=== PATIENT | female | born 1995 | race Caucasian/White ===

== ENCOUNTER 2016-12-05 08:54 | Emergency (ER) | payer BC, OTHER ==
[~2016-12-05] VITALS: Ht 147.3 cm; Wt 6.0 kg
[2016-12-05 08:59] VITALS: Ht 147.3 cm; Wt 6.0 kg
[2016-12-05 10:30] VITALS: TEMP 36.4; O2SAT 98
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
[2016-12-05] MEDS ORDERED: ONDA4TAB10 SL (11:39)
[2016-12-05] MEDS ORDERED: RALT400T PO (11:39)
[2016-12-05] MEDS ORDERED: TRVHP PO (11:39)
[2016-12-05] MEDS ORDERED: RALTEGRAVIR POTASSIUM TAB 400 MG TAB PO SCH (12:00)
[2016-12-05] MEDS ORDERED: AZITHROMYCIN 250 MG TAB PO SCH (12:00)
[2016-12-05] MEDS ORDERED: CEFTRIAXONE SOD INJ 250 MG in SYRINGE 0 ML IM SCH (12:00)
[2016-12-05] MEDS ORDERED: ONDANSETRON 8MG OD TAB PO SCH (12:00)
[2016-12-05] MEDS ORDERED: HIV POST EXPOSURE PROPHYLAXIS KIT SCH (12:00)
[2016-12-05] MEDS ORDERED: NURSING VERBAL MED ORDER ONE (12:00)
[2016-12-05] MEDS ORDERED: LEVONORGESTREL (EMERGENCY OC) 1.5 MG TAB PO SCH (12:00)
[2016-12-05] MEDS ORDERED: EMTRICITABINE/TENOFOVIR TAB PO SCH (12:00)
--- NOTE | 2016-12-05 12:25 | DIAGNOSTIC IMAGING REPORT ---
RIGHT SHOULDER MIN 2 VIEWS ROUTINE CLINICAL HISTORY: Right shoulder pain COMPARISON: None. DISCUSSION: No fractures or dislocations are visualized. There are no erosive or destructive changes. There are no visible periarticular calcifications. IMPRESSION: Normal conventional radiographic evaluation of the right shoulder Electronically signed by: Maycol Campbell M.D. 12/05/2016 12:24 PM Dictated Date/Time: 12/05/2016 12:23 PM
[2016-12-05 12:55] VITALS: BP 122/64; PULSE 89; O2SAT 98
[2017-03-01] MEDS ORDERED: DPKEC500 PO (10:19)
== END 2016-12-05 12:56 | disposition home or self-care (01) ==
LOC: C.EDB 08:58 → C.EDC 12:56
DX: T74.21XA Adult sexual abuse, confirmed, initial encounter (principal); S49.91XA Unspecified injury of right shoulder and upper arm, initial encounter; X58.XXXA Exposure to other specified factors, initial encounter; Y92.89 Other specified places as the place of occurrence of the external cause; J45.909 Unspecified asthma, uncomplicated; F31.9 Bipolar disorder, unspecified; F60.3 Borderline personality disorder; F17.210 Nicotine dependence, cigarettes, uncomplicated

== ENCOUNTER 2017-02-23 03:55 | Inpatient (IN) | payer BC, OTHER ==
[~2017-02-23] VITALS: Ht 147.3 cm; Wt 50.9 kg
[~2017-02-23 03:55] MED LIST: ONDA4TAB10 SL; RALT400T PO; TRVHP PO
[2017-02-23] MEDS ORDERED: SODIUM CHLORIDE 0.9% 1000ML 1,000 ML IV STA (04:01)
--- NOTE | 2017-02-23 04:10 | EMERGENCY ROOM VISIT NOTE ---
History Report prepared by Minhibanastacia: Tamia Ocampo Under the Supervision of: Darien OharaO. First contact with patient: 03:56 Stated Complaint: DRUG OVERDOSE / TYLENOL, BENADRYL History of Present Illness The patient is a 18 year old female who presents to the Emergency Room via EMS with complaints of intentional overdose occurring about 2 hours ago. The patient admits to taking about 18-19 from a 24 pill bottle of 500 mg Tylenol. She also took an unknown amount of [id number] sleeping aide. She is unsure if the sleeping aide contained any Benadryl. She wrote a suicide note prior to taking the medication. She admits to depression and suicidal ideation. She has a history of suicide attempt but does not remember when she last attempted suicide. She had been evaluated by her psychiatrist last week and had informed the psychiatrist that she was going to attempt suicide with a plan to overdose. She denies any alcohol or recreational drug use tonight. The patient currently denies any pain but she complains of tiredness. She denies dizziness, lightheadedness, nausea, vomiting, or any other complaints. Source of History: patient, EMS Onset: about 2 hours ago Position: other (global) Symptom Intensity: No pain Quality: other (intentional overdose) Associated Symptoms: No nausea, No vomiting Review of Systems See HPI for pertinent positives and negatives. A total of ten systems were reviewed and were otherwise negative. Past Medical & Surgical Medical Problems: (1) Asthma (2) Bipolar disorder (3) Borderline personality disorder (4) Cervical pain (neck) (5) Epigastric abdominal pain (6) Frontal lobe contusion (7) Head injury (8) Head injury (9) Mood disorder (10) Mood disorder (11) Suicidal ideation (12) Suicidal ideation (13) Suicidal ideation (14) Syncope (15) Syncope and collapse Family History No significant family history Social History Drug Use: marijuana Marital Status: single Occupation Status: student Current/Historical Medications No Active Prescriptions or Reported Meds Allergies Coded Allergies: No Known Allergies (Unverified , 02/23/17) Physical Exam Vital Signs Date Time Temp Pulse Resp B/P Pulse Ox O2 Delivery O2 Flow Rate FiO2 02/23/17 06:02 81 95/55 100 Room Air 02/23/17 04:14 99 Room Air 02/23/17 04:10 Room Air 02/23/17 04:07 90 02/23/17 04:03 36.5 81 18 115/53 98 Room Air Physical Exam GENERAL: Awake, alert, well-appearing, in no distress HENT: Normocephalic, atraumatic. Oropharynx unremarkable. EYES: Normal conjunctiva. Sclera non-icteric. NECK: Supple. No nuchal rigidity. FROM. No JVD. RESPIRATORY: Clear to auscultation. CARDIAC: Regular rate, normal rhythm. Extremities warm and well perfused. Pulses equal. ABDOMEN: Soft, non-distended. No tenderness to palpation. No rebound or guarding. No masses. RECTAL: Deferred. MUSCULOSKELETAL: Chest examination reveals no tenderness. The back is symmetrical on inspection without obvious abnormality. There is no CVA tenderness to palpation. No joint edema. LOWER EXTREMITIES: Calves are equal size bilaterally and non-tender. No edema. No discoloration. NEURO: Normal sensorium. No sensory or motor deficits noted. PSYCHIATRIC: Depressed affect. SKIN: No rash or jaundice noted. Medical Decision & Procedures Laboratory Results 02/23/17 04:20 Red Blood Count 4.83, Mean Corpuscular Volume 90.7, Mean Corpuscular Hemoglobin 31.1, Mean Corpuscular Hemoglobin Concent 34.2, Mean Platelet Volume 11.3, Neutrophils (%) (Auto) 50.9, Lymphocytes (%) (Auto) 38.8, Monocytes (%) (Auto) 7.2, Eosinophils (%) (Auto) 2.4, Basophils (%) (Auto) 0.6, Neutrophils # (Auto) 4.02, Lymphocytes # (Auto) 3.07, Monocytes # (Auto) 0.57, Eosinophils # (Auto) 0.19, Basophils # (Auto) 0.05 02/23/17 04:20 Test 02/23/17 04:11 02/23/17 04:20 02/23/17 04:25 02/23/17 06:15 Bedside Glucose 85 mg/dl (70-90) White Blood Count 7.91 K/uL (4.8-10.8) Red Blood Count 4.83 M/uL (4.2-5.4) Hemoglobin 15.0 g/dL (12.0-16.0) Hematocrit 43.8 % (37-47) Mean Corpuscular Volume 90.7 fL (80-100) Mean Corpuscular Hemoglobin 31.1 pg (25-34) Mean Corpuscular Hemoglobin Concent 34.2 g/dl (32-36) Platelet Count 258 K/uL (130-400) Mean Platelet Volume 11.3 fL (7.4-10.4) Neutrophils (%) (Auto) 50.9 % Lymphocytes (%) (Auto) 38.8 % Monocytes (%) (Auto) 7.2 % Eosinophils (%) (Auto) 2.4 % Basophils (%) (Auto) 0.6 % Neutrophils # (Auto) 4.02 K/uL (1.4-6.5) Lymphocytes # (Auto) 3.07 K/uL (1.2-3.4) Monocytes # (Auto) 0.57 K/uL (0.11-0.59) Eosinophils # (Auto) 0.19 K/uL (0-0.5) Basophils # (Auto) 0.05 K/uL (0-0.2) RDW Standard Deviation 40.7 fL (36.4-46.3) RDW Coefficient of Variation 12.1 % (11.5-14.5) Immature Granulocyte % (Auto) 0.1 % Immature Granulocyte # (Auto) 0.01 K/uL (0.00-0.02) Prothrombin Time 10.7 SECONDS (9.0-12.0) Prothromb Time International Ratio 1.0 (0.9-1.1) Activated Partial Thromboplast Time 26.5 SECONDS (21.0-31.0) Partial Thromboplastin Ratio 1.0 Anion Gap 7.0 mmol/L (3-11) Estimated GFR () 93.1 Estimated GFR (Non- 80.3 BUN/Creatinine Ratio 11.3 (10-20) Calcium Level 9.5 mg/dl (8.5-10.1) Total Bilirubin 0.4 mg/dl (0.2-1) Direct Bilirubin 0.1 mg/dl (0-0.2) Aspartate Amino Transf (AST/SGOT) 13 U/L (15-37) Alanine Aminotransferase (ALT/SGPT) 26 U/L (12-78) Alkaline Phosphatase 53 U/L (45-117) Total Creatine Kinase 144 U/L (26-192) Total Protein 7.6 gm/dl (6.4-8.2) Albumin 4.5 gm/dl (3.4-5.0) Lipase 123 U/L (73-393) Salicylates Level < 1.7 mg/dl (2.8-20) Ethyl Alcohol mg/dL < 3.0 mg/dl (0-3) Urine Color YELLOW Urine Appearance CLEAR (CLEAR) Urine pH 7.0 (4.5-7.5) Urine Specific [place] 1.012 (1.000-1.030) Urine Protein NEG (NEG) Urine Glucose (UA) NEG (NEG) Urine Ketones NEG (NEG) Urine Occult Blood NEG (NEG) Urine Nitrite NEG (NEG) Urine Bilirubin NEG (NEG) Urine Urobilinogen NEG (NEG) Urine Leukocyte Esterase TRACE (NEG) Urine WBC (Auto) 5-10 /hpf (0-5) Urine RBC (Auto) 0-4 /hpf (0-4) Urine Hyaline Casts (Auto) 1-5 /lpf (0-5) Urine Epithelial Cells (Auto) >30 /lpf (0-5) Urine Bacteria (Auto) 1+ (NEG) Urine Test NEG (NEG) Urine Opiates Screen NEG (NEG) Urine Methadone, Qualitative NEG (NEG) Urine Barbiturates NEG (NEG) Urine Phencyclidine (PCP) Level NEG (NEG) Ur Amphetamine/Methamphetamine NEG (NEG) MDMA (Ecstasy) Screen NEG (NEG) Urine Benzodiazepines Screen NEG (NEG) Urine Cocaine Metabolite NEG (NEG) Urine Marijuana (THC) POS (NEG) Laboratory results reviewed by me Medications Administered Medications (Trade) Dose Ordered Sig/Pietro Route Start Time Stop Time Status Last Admin Dose Admin Sodium Chloride (Nss 1000ml) 1,000 ml @ 999 mls/hr Q1H1M STAT IV 02/23/17 04:01 02/23/17 05:01 DC 02/23/17 04:14 999 MLS/HR ECG Indication: toxicologic Rate (beats per minute): 76 Rhythm: normal sinus Findings: no acute ischemic change, other (normal intervals; normal axis) ED Course 0356: The patient was evaluated in room B03B. A complete history and physical exam was performed. 0401: Sodium Chloride 1000 ml @ 999 mls/hr IV 0558: Acetylcysteine 7500 mg/Dextrose 237.5 ml @ 200 mls/hr IV. Upon reexamination, the patient was resting comfortably. I discussed the test results and treatment plan with her. I discussed the patient's case with Dr. Oreilly, from [facility]. The patient will be evaluated for further management. 0700: Acetylcysteine 7500 mg/Dextrose 512.5 ml @ 125 mls/hr IV 1100: Acetylcysteine 7500 mg/Dextrose 1,025 ml @ 62.5 mls/hr IV Medical Decision Differential diagnosis: Etiologies such as toxicologic, infection, hypoglycemia, electrolyte abnormalities, cardiac sources, intracerebral event, neurologic, as well as others were entertained. Patient will be evaluated by the hospitalist as well as crisis. Patient was started on IV Mucomyst due to a 2 hour Tylenol level of 117. The concern is that she has actually taken a calculated overdose of Tylenol. Poison control was contacted by the nursing staff and they recommended a 4 hour Tylenol level and if greater than 150 to continue Acetadote. Case was discussed with the hospitalist at 6:15 AM for admission Consults Time Called: [phone] Consulting Physician: Dr. Oreilly, from [facility] Returned Call: [phone] I discussed the patient's case with Dr. Oreilly, from [facility]. Impression Primary Impression: Acetaminophen overdose Additional Impression: Suicidal ideation Scribe Attestation The scribe's documentation has been prepared under my direction and personally reviewed by me in its entirety. I confirm that the note above accurately reflects all work, treatment, procedures, and medical decision making performed by me. Departure Information Dispostion Being Evaluated By Hospitalist Prescriptions No Active Prescriptions or Reported Meds Problem Qualifiers Primary Impression: Acetaminophen overdose Encounter type: initial encounter Injury intent: intentional self-harm Qualified Codes: T39.1X2A - Poisoning by 4-aminophenol derivatives, intentional self-harm, initial encounter
[2017-02-23 04:48] LABS: URINE APPEARANCE CLEAR (CLEAR); URINE BILIRUBIN NEG (NEG); URINE COLOR YELLOW; URINE EPITHELIAL CELL AUTO >30 /lpf (0-5); URINE NITRITE NEG (NEG); URINE SPECIFIC GRAVITY 1.012 (1.000-1.030); UROBILINOGEN NEG (NEG)
[2017-02-23 04:58] LABS: BASO % 0.6 %; BASO ABS # 0.05 K/uL (0-0.2); COMPLETE YES; EOS % 2.4 %; HEMATOCRIT 43.8 % (37-47); IG% 0.1 %; LYMPH % 38.8 %; LYMPH ABS # 3.07 K/uL (1.2-3.4); MEAN CELL VOLUME 90.7 fL (80-100); MEAN CORPUSCULAR HEMOGLOBIN 31.1 pg (25-34); MEAN CORPUSCULAR HGB CONC 34.2 g/dl (32-36); MEAN PLATELET VOLUME 11.3 fL (7.4-10.4); MONO % 7.2 %; NEUT % 50.9 %; PLATELET COUNT 258 K/uL (130-400); RED BLOOD COUNT 4.83 M/uL (4.2-5.4); WHITE BLOOD COUNT 7.91 K/uL (4.8-10.8)
[2017-02-23 05:04] LABS: BENZODIAZEPINE, URINE NEG (NEG); COCAINE,URINE NEG (NEG); PHENCYCLIDINE, URINE NEG (NEG)
[2017-02-23 05:08] LABS: PROTHROMBIN TIME (PATIENT) 10.7 SECONDS (9.0-12.0)
[2017-02-23 05:10] LABS: MANUAL MICROSCOPIC REQUIRED? NO; REVIEW REQ? NO
[2017-02-23 05:16] LABS: ALT/SGPT 26 U/L (12-78); AST/SGOT 13 U/L (15-37); BLOOD UREA NITROGEN 11 mg/dl (7-18); BUN/CREATININE RATIO 11.3 (10-20); CALCIUM 9.5 mg/dl (8.5-10.1); CARBON DIOXIDE 29 mmol/L (21-32); CHLORIDE 105 mmol/L (98-107); CREATININE 0.99 mg/dl (0.60-1.20); GLUCOSE 80 mg/dl (70-99); POTASSIUM 3.2 mmol/L (3.5-5.1); SODIUM 141 mmol/L (136-145)
[2017-02-23 05:19] LABS: ALKALINE PHOSPHATASE 53 U/L (45-117)
[2017-02-23 05:50] LABS: ACETAMINOPHEN 117 ug/ml (10-30)
[2017-02-23] MEDS ORDERED: DEXTROSE 5% IV STA (05:58)
[2017-02-23] MEDS ORDERED: ACETYLCYSTEINE IV STA (05:58)
[2017-02-23] MEDS ORDERED: ONDANSETRON INJ 2 MG/ML 2 ML VIAL IV PRN (06:30)
--- NOTE | 2017-02-23 06:37 | History and Physical ---
History & Physical Date & Time of Service: February 23, 2017 at 06:26 Chief Complaint: Drug Overdose / TylenolAlisha Primary Care Physician: [facility] History of Present Illness Source: patient, EMS The patient is a 21-year-old female who is brought to the emergency department by EMS due to an intentional Tylenol overdose that occurred about 2 hours prior to arrival. The patient admits to taking approximately 18-19 pills of 500 mg each, and an [id number] sleeping aid. She has a history of depression and suicidal ideation, and has had suicide attempts in the past. She did write a suicide note prior to taking the above medications. She was seen by her psychiatrist last week. Her main complaint this time is feeling fatigued and a slight frontal headache. Past Medical/Surgical History Medical Problems: (1) Asthma Status: Chronic (2) Bipolar disorder Status: Chronic (3) Borderline personality disorder Status: Chronic (4) Cervical pain (neck) Status: Resolved (5) Epigastric abdominal pain Status: Resolved (6) Frontal lobe contusion Status: Resolved (7) Head injury Status: Resolved (8) Head injury Status: Resolved (9) Mood disorder Status: Resolved (10) Mood disorder Status: Resolved (11) Suicidal ideation Status: Resolved (12) Suicidal ideation Status: Resolved (13) Suicidal ideation Status: Resolved (14) Syncope Status: Resolved (15) Syncope and collapse Status: Resolved Family History No significant family history Social History Smoking Status: Current Every Day Smoker Smokeless Tobacco Use: No Alcohol Use: socially Drug Use: marijuana Marital Status: single Occupational Status: student Immunizations History of Tetanus Vaccine?: Unknown History of Hepatitis B Vaccine: Unknown Multi-Drug Resistant Organisms History of MDRO: No Allergies Coded Allergies: No Known Allergies (Unverified , 02/23/17) Home Medications No Active Prescriptions or Reported Meds Review of Systems The patient denies chest pain, palpitations, shortness of breath, cough, lower extremity swelling, vision change, hearing change, sore throat, fevers, chills, sweats, weight change, vomiting, abdominal pain, pelvic pain, blood in urine or stool, dysuria, urinary frequency or urgency, lightheadedness, dizziness, memory loss, rash, abnormal bruising or bleeding, imbalance, focal or generalized weakness, numbness or tingling in arms or legs, arthralgias or myalgias, back or neck pain, night sweats, or allergy symptoms. The review of systems is otherwise negative other than for that already noted above, and at least 10 systems have been reviewed. Physical Exam Vital Signs Date Time Temp Pulse Resp B/P Pulse Ox O2 Delivery O2 Flow Rate FiO2 02/23/17 06:02 81 95/55 100 Room Air 02/23/17 04:14 99 Room Air 02/23/17 04:10 Room Air 02/23/17 04:07 90 02/23/17 04:03 36.5 81 18 115/53 98 Room Air The patient is awake, well-developed and adequately nourished, alert and oriented 3, normocephalic and atraumatic, lying in bed and in no acute distress. HEENT--PERRL, EOMI, mucous membranes and oropharynx dry. Neck--supple, no JVD or bruits, thyroid normal, trachea midline, no adenopathy. Heart--normal S1 and S2, intermittently tachycardic, no extra beats, no murmurs , rubs or gallops. Lungs--clear bilaterally with decreased breath sounds throughout, no respiratory distress, no accessory muscle use. Abdomen--normal bowel sounds and soft, nontender and nondistended, no hernias or masses, no organomegaly. Extremities--no cyanosis, clubbing or edema. There are good distal pulses b/l. Dermatologic--normal skin turgor, normal color, warm and dry, no abnormal lymph nodes, no rash. Neurologic--cranial nerves II through XII grossly intact, motor and sensory examination normal. Rheumatologic--normal range of motion, nontender, muscles and joints. Psychiatric--depressed. Diagnostics Laboratory Results Results Past 24 Hours Test 02/23/17 04:11 02/23/17 04:20 02/23/17 04:25 02/23/17 06:15 Range/Units Bedside Glucose 85 70-90 mg/dl White Blood Count 7.91 4.8-10.8 K/uL Red Blood Count 4.83 4.2-5.4 M/uL Hemoglobin 15.0 12.0-16.0 g/dL Hematocrit 43.8 37-47 % Mean Corpuscular Volume 90.7 80-100 fL Mean Corpuscular Hemoglobin 31.1 25-34 pg Mean Corpuscular Hemoglobin Concent 34.2 32-36 g/dl Platelet Count 258 130-400 K/uL Mean Platelet Volume 11.3 7.4-10.4 fL Neutrophils (%) (Auto) 50.9 % Lymphocytes (%) (Auto) 38.8 % Monocytes (%) (Auto) 7.2 % Eosinophils (%) (Auto) 2.4 % Basophils (%) (Auto) 0.6 % Neutrophils # (Auto) 4.02 1.4-6.5 K/uL Lymphocytes # (Auto) 3.07 1.2-3.4 K/uL Monocytes # (Auto) 0.57 0.11-0.59 K/uL Eosinophils # (Auto) 0.19 0-0.5 K/uL Basophils # (Auto) 0.05 0-0.2 K/uL RDW Standard Deviation 40.7 36.4-46.3 fL RDW Coefficient of Variation 12.1 11.5-14.5 % Immature Granulocyte % (Auto) 0.1 % Immature Granulocyte # (Auto) 0.01 0.00-0.02 K/uL Prothrombin Time 10.7 9.0-12.0 SECONDS Prothromb Time International Ratio 1.0 0.9-1.1 Activated Partial Thromboplast Time 26.5 21.0-31.0 SECONDS Partial Thromboplastin Ratio 1.0 Sodium Level 141 136-145 mmol/L Potassium Level 3.2 3.5-5.1 mmol/L Chloride Level 105 98-107 mmol/L Carbon Dioxide Level 29 21-32 mmol/L Anion Gap 7.0 3-11 mmol/L Blood Urea Nitrogen 11 7-18 mg/dl Creatinine 0.99 0.60-1.20 mg/dl Estimated GFR () 93.1 Estimated GFR (Non- 80.3 BUN/Creatinine Ratio 11.3 10-20 Random Glucose 80 70-99 mg/dl Calcium Level 9.5 8.5-10.1 mg/dl Total Bilirubin 0.4 0.2-1 mg/dl Direct Bilirubin 0.1 0-0.2 mg/dl Aspartate Amino Transf (AST/SGOT) 13 15-37 U/L Alanine Aminotransferase (ALT/SGPT) 26 12-78 U/L Alkaline Phosphatase 53 45-117 U/L Total Creatine Kinase 144 26-192 U/L Total Protein 7.6 6.4-8.2 gm/dl Albumin 4.5 3.4-5.0 gm/dl Lipase 123 73-393 U/L Salicylates Level < 1.7 2.8-20 mg/dl Acetaminophen Level 117 10-30 ug/ml Ethyl Alcohol mg/dL < 3.0 0-3 mg/dl Urine Color YELLOW Urine Appearance CLEAR CLEAR Urine pH 7.0 4.5-7.5 Urine Specific [place] 1.012 1.000-1.030 Urine Protein NEG NEG Urine Glucose (UA) NEG NEG Urine Ketones NEG NEG Urine Occult Blood NEG NEG Urine Nitrite NEG NEG Urine Bilirubin NEG NEG Urine Urobilinogen NEG NEG Urine Leukocyte Esterase TRACE NEG Urine WBC (Auto) 5-10 0-5 /hpf Urine RBC (Auto) 0-4 0-4 /hpf Urine Hyaline Casts (Auto) 1-5 0-5 /lpf Urine Epithelial Cells (Auto) >30 0-5 /lpf Urine Bacteria (Auto) 1+ NEG Urine Test NEG NEG Urine Opiates Screen NEG NEG Urine Methadone, Qualitative NEG NEG Urine Barbiturates NEG NEG Urine Phencyclidine (PCP) Level NEG NEG Ur Amphetamine/Methamphetamine NEG NEG MDMA (Ecstasy) Screen NEG NEG Urine Benzodiazepines Screen NEG NEG Urine Cocaine Metabolite NEG NEG Urine Marijuana (THC) POS NEG EKG EKG shows normal sinus rhythm with sinus arrhythmia, right bundle branch block, no acute ST-T changes. Impression Assessment and Plan Depression/suicidal ideation/intentional acetaminophen overdose and unknown sleeping aid ingestion--the patient is being started on Acetadote in the ED and will be continued per protocol. Her initial acetaminophen level is elevated at 117. Poison control has been notified. Repeat acetaminophen level is pending. We'll admit to telemetry unit for monitoring. Place on normal saline with potassium chloride 20 mEq at 125 ML's per hour. We'll follow serial laboratories as per protocol. We'll consult psychiatry. She'll be on a regular diet. Level of Care Telemetry Advanced Directives Existing Advance Directive: No Existing Living Will: No Existing Power of Revenue Officer: No Resuscitation Status FULL RESUSCITATION VTE Prophylaxis VTE Risk Assessment Done? Y/N: Yes Risk Level: Moderate Given or contraindicated: Treatment not indicated
[2017-02-23] MEDS ORDERED: ACETYLCYSTEINE IV SCH ×2 (07:00→11:00)
[2017-02-23] MEDS ORDERED: DEXTROSE 5% IV SCH ×2 (07:00→11:00)
[2017-02-23 07:21] VITALS: BP 125/86; PULSE 79; TEMP 36.7; O2SAT 98; Ht 147.3 cm; Wt 50.9 kg
[2017-02-23] MEDS ORDERED: NSS + 20MEQ KCL 1000ML 1,000 ML IV SCH (08:00)
--- NOTE | 2017-02-23 10:59 | Progress Note ---
Progress Note Date of Service February 23, 2017. (Julia Garcia ., LEVAR) Progress Note Patient admitted around 6:30 this morning. Seen and examined by me. She denies any specific stressful events or triggers to precipitate the suicide attempt. She states that she's been feeling suicidal for a while now. She has a history of depression and suicidal ideation and previous suicidal attempts. Patient states that she went to [facility] psych clinic last week. She meet with someone named Rima but is unsure if she she was a counselor or psychiatrist. The patient is currently not on any antidepressants but states that she has tried several in the past that did not seem to work. She is currently complaining of nausea and vomiting and reports having no appetite. She complains of pain across her chest and her epigastrium that is exacerbated by vomiting. She currently rates the discomfort as a 4/10 aching pain. She complains of fatigue and feeling foggy like she is "in a dream." She also notes a headache right behind her eyebrows that is a 2/10 dull pain and has been improving since arrival. The patient states that she has been sweating all night. She reports numbness/tingling in her fingers bilaterally and states they feel swollen. The patient denies fevers, chills, palpitations, claudication, cough, wheezing, shortness of breath, dysuria, hematuria, urinary retention, paralysis, and motor weakness. The patient appears fatigued. She has mild tenderness in the epigastrium with palpation. Physical exam otherwise unremarkable. A/P: Suicide attempt with intentional Tylenol overdose--improving -Admitted to [facility]. Sinus rhythm this morning, heart rate between 60s-70s -Four-hour Tylenol level at 69. Patient will not need further acetylcysteine -Repeat Tylenol level in 4 hours -LFTs stable -Psychiatry consulted, appreciate recs -Patient stable from medical standpoint for transfer to mental health unit Mild hypokalemia -Potassium 3.2 on arrival -IVF with NSS and 20 mEq KCL at 125 cc/hr -Continue to monitor -Check magnesium level, replace if needed. May be low due to vomiting This chart was completed in part utilizing [employer] Speech Voice Recognition software. Attempts were made to minimize the grammatical errors, random word insertions, pronoun errors and incomplete sentences. Any formal questions or concerns about the content, text or information contained within the body of this dictation should be directly addressed to the provider for clarification. (Julia Garcia ., PA-C) I agree with PA assessment and plan and have seen and examined pt myself Pt reluctant to give much hx Reports still having suicidal ideations Reports OD of tylenol but unsure of how many capsules and also taking unknown amt of sleeping pills Reviewed vitals and labs Cont to follow normogram, further NAC not needed Consult psych Medically cleared for transfer to in psych once bed available (Silvestre Rene D.O.)
[2017-02-23 11:19] VITALS: BP 106/70; PULSE 79; TEMP 36.8; O2SAT 98
--- NOTE | 2017-02-23 13:14 | Psychiatric Consultation ---
Psychiatric Consultation Date of Service: February 23, 2017. Patient was assessed by the psychiatric liaison nurse and case reviewed. She meets criteria for inpatient psychiatric admission and is willing to sign in voluntarily. See psychiatric admission note for further information.
[2017-02-23 13:45] VITALS: BP 106/70; PULSE 79; TEMP 36.8; O2SAT 98
--- NOTE | 2017-02-23 14:09 | Discharge Instructions ---
Discharge Instructions Date of Service February 23, 2017. Admission Reason for Admission: Acetaminophen Od, Suicidal Ideation Discharge Discharge Diagnosis / Problem: Suicide attempt with intention acetaminophen overdose Discharge Goals Goal(s): Decrease discomfort, Improve function, Diagnostic testing, Therapeutic intervention Activity Recommendations Activity Level: Up Ad Nikki . Additional Information Patient informed of condition: Yes Advance Directives: No DNR: No Level of Care: Other (inpatient mental health) Communicable Disease: No Prognosis: Stable Instructions / Follow-Up Instructions / Follow-Up The patient was admitted to the hospital after presenting with an intentional overdose of acetaminophen. Her acetaminophen level was 117 on arrival, which was 2 hours following the overdose. 4 hour level was down to 69. The patient received 2 doses of acetylcysteine. Patient's vital signs and liver function has remained stable. The patient was mildly hypokalemic on arrival with a potassium of 3.2 which was replaced in her IV fluids. She has been medically cleared for transfer to the inpatient mental health unit. Medications: *No changes made to the patient's medications. Follow up: *Recommend following up with patient's primary care provider in one week regarding hospital stay. *Follow-up with psychiatry as appropriate. Current Hospital Diet Patient's current hospital diet: Regular Diet Discharge Diet Recommended Diet: Regular Diet Pending Studies Studies pending at discharge: no Medical Emergencies . Who to Call and When: Medical Emergencies: If at any time you feel your situation is an emergency, please call 911 immediately. . Non-Emergent Contact Non-Emergency issues call your: Primary Care Provider Call Non-Emergent contact if: you have a fever, your pain is not controlled, your pain is worsening, your pain is unusual for you, your pain is concerning you, you have any medication questions . Past History Medical & Surgical History: (1) Suicide attempt by acetaminophen overdose . "Provider Documentation" section prepared by Julia Garcia. . Core Measure Problem Core Measures: None
--- NOTE | 2017-02-23 14:21 | Discharge Summary ---
Discharge Summary Date of Service February 23, 2017. Discharge Summary Admission Date: February 23, 2017 at 06:22 Discharge Date: February 23, 2017 Discharge Disposition: Acute care mental health Principal Diagnosis: Suicide attempt with acetaminophen overdose Immunizations: History of Tetanus Vaccine?: Unknown History of Hepatitis B Vaccine: Unknown Medication Reconciliation Medication Profile: No Active Prescriptions or Reported Meds Discharge Exam She denies any specific stressful events or triggers to precipitate the suicide attempt. She states that she's been feeling suicidal for a while now. She has a history of depression and suicidal ideation and previous suicidal attempts. Patient states that she went to [facility] psych clinic last week. She meet with someone named Rima but is unsure if she she was a counselor or psychiatrist. The patient is currently not on any antidepressants but states that she has tried several in the past that did not seem to work. She is currently complaining of nausea and vomiting and reports having no appetite. She complains of pain across her chest and her epigastrium that is exacerbated by vomiting. She currently rates the discomfort as a 4/10 aching pain. She complains of fatigue and feeling foggy like she is "in a dream." She also notes a headache right behind her eyebrows that is a 2/10 dull pain and has been improving since arrival. The patient states that she has been sweating all night. She reports numbness/tingling in her fingers bilaterally and states they feel swollen. Review of Systems: Constitutional: + fatigue, + problem reported (foggy), + sweats, No chills, No fever Eyes: + problem reported (reports trouble focusing), No diplopia, No eye pain, No worsening of vision ENT: No hearing loss, No sore throat, No trouble swallowing Respiratory: No cough, No shortness of breath, No wheezing Cardiovascular: + chest pain (4/10 aching pain across chest, worse with vomiting), No claudication, No palpitations Abdomen: + nausea, + pain (4/10 aching pain from chest radiates to epigastrium), + vomiting Musculoskeletal: No calf pain, No joint pain, No muscle pain Genitourinary - Female: No dysuria, No hematuria, No urinary retention Neurologic: + numbness/tingling (fingers bilaterally), No paralysis, No weakness Psychiatric: + depression symptoms, + substance abuse (Tylenol overdose and sleeping aids) Integumentary: No color change, No itch, No rash Physical Exam: General Appearance: WD/WN, no apparent distress Eyes: normal inspection, PERRL, EOMI ENT: normal ENT inspection, hearing grossly normal, pharynx normal Neck: supple, no JVD, trachea midline Respiratory/Chest: lungs clear, normal breath sounds, no respiratory distress Cardiovascular: regular rate, rhythm, no gallop, no murmur Abdomen / GI: normal bowel sounds, soft, + tenderness (epigastrium mildly TTP) Extremities: normal inspection, no pedal edema, normal range of motion Neurologic/Psychiatric: alert, oriented x 3, + depressed affect Skin: normal color, warm/dry, no rash Hospital Course 21-year-old female with a history of depression, anxiety, suicidal ideation and previous suicide attempts presents to the ED following an intentional overdose of acetaminophen. Patient unsure exactly how many pills she took, but thinks she took about 18-19 500 mg tabs. She also reports taking a sleeping aid that she does not know the name of it or how many she took. Patient presented to the ED after she started vomiting at home so much that she developed chest and abdominal pain. Acetaminophen level 2 hours following the overdose was 117. She received 2 doses of acetylcysteine. Suicide attempt with intentional Tylenol overdose--improving/stable -Admitted to tele. Sinus rhythm this morning, heart rate between 60s-70s -4 hour Tylenol level at 69. Patient will not need further acetylcysteine -Repeat Tylenol level at 8 hours down to 20 -LFTs stable -Psychiatry consulted, appreciate recs: pt meets criteria for inpt psych -Patient stable from medical standpoint for transfer to mental health unit when bed available Mild hypokalemia, likely secondary to vomiting -Potassium 3.2 on arrival -IVF with NSS and 20 mEq KCL at 125 cc/hr -Magnesium WNL at 2.3 Depression/anxiety/SI -Per psych. Not on any medications prior to arrival although she states she has tried several agents in the past. Saw [facility] psych clinic last week. Dispo -Pt discharged and admitted to mental health unit 02/23 Total Time Spent: Greater than 30 minutes This includes examination of the patient, discharge planning, medication reconciliation, and communication with other providers. Discharge Instructions Please refer to the electronic Patient Visit Report (Discharge Instructions) for additional information. Additional Copies To [facility]
[2017-03-01] MEDS ORDERED: DPKEC500 PO (10:19)
== END 2017-02-23 13:48 | DRG 881 ==
LOC: ENRESERVDT → ENRESERVTM → EDBD 03:55 → C.EDB 03:57 → C.2E 06:22
PROVIDERS: ADMIT Hospitalist; ATTEND Hospitalist
DX: F32.9 Major depressive disorder, single episode, unspecified (principal); R45.851 Suicidal ideations; T39.1X2A Poisoning by 4-Aminophenol derivatives, intentional self-harm, initial encounter; F41.9 Anxiety disorder, unspecified; F17.210 Nicotine dependence, cigarettes, uncomplicated; J45.909 Unspecified asthma, uncomplicated; E87.6 Hypokalemia; R11.10 Vomiting, unspecified; Z86.59 Personal history of other mental and behavioral disorders; Z91.5 Personal history of self-harm

== ENCOUNTER 2017-02-23 13:48 | Inpatient (IN) | payer BC, OTHER ==
[~2017-02-23] VITALS: Ht 149.9 cm; Wt 51.4 kg
[2017-02-23 14:30] VITALS: BP 108/75; PULSE 67; TEMP 36.6; Ht 149.9 cm; Wt 51.4 kg
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
[2017-02-23] MEDS ORDERED: MAGNESIUM HYDROXIDE SUSP 30 ML UDC PO PRN (15:00)
[2017-02-23] MEDS ORDERED: BISMUTH SUBSALICYLATE PER ML OMNICELL CHARGE PO PRN (15:00)
[2017-02-23] MEDS ORDERED: ALUMINUM/MAGNESIUM SUSP 30 ML UDC PO PRN (15:00)
[2017-02-23] MEDS ORDERED: SODIUM CHLORIDE 0.65% NA SOLN 45 ML (OCEAN) PRN (15:00)
[2017-02-24 06:52] VITALS: BP_SYST 102; BP_SYST 91; BP_DIAS 63; BP_DIAS 69; PULSE 68; PULSE 76; TEMP 36.5
[2017-02-24] MEDS ORDERED: LORAZEPAM 2 MG/ML 1 ML VIAL ONE (10:26)
[2017-02-24] MEDS ORDERED: HALOPERIDOL LACTATE 5 MG/ML 1 ML VIAL ONE (10:27)
[2017-02-24] MEDS ORDERED: HALOPERIDOL 5 MG TAB PO PRN (10:30)
[2017-02-24] MEDS ORDERED: HALOPERIDOL LACTATE 5 MG/ML 1 ML VIAL IM PRN (10:30)
[2017-02-24] MEDS ORDERED: LORAZEPAM 2 MG/ML 1 ML VIAL IM PRN (10:30)
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
[2017-02-24] MEDS ORDERED: NURSING VERBAL MED ORDER ONE (23:45)
[2017-02-24] MEDS ORDERED: LORAZEPAM 1 MG TAB PO STA (23:47)
[2017-02-25 06:52] VITALS: BP_SYST 106; BP_SYST 76; BP_DIAS 44; BP_DIAS 61; PULSE 62; TEMP 36.6
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
[2017-02-25] MEDS ORDERED: DIVALPROEX SODIUM 250 MG DELAY REL TAB PO ONE (10:45)
[2017-02-25] MEDS ORDERED: NURSING VERBAL MED ORDER ONE ×2 (17:15→19:00)
[2017-02-25] MEDS ORDERED: BENZTROPINE MESYLATE 1 MG TAB PO PRN (17:30)
[2017-02-25] MEDS ORDERED: DiphenhydrAMINE HCL 50 MG/ML VIAL ONE (19:01)
[2017-02-25] MEDS: DIVALPROEX SODIUM 250 MG DELAY REL TAB PO SCH (21:40)
[2017-02-26] MEDS: hydrOXYzine HCL 25 MG TAB PO PRN (02:55)
[2017-02-26 06:47] VITALS: BP_SYST 105; BP_SYST 96; BP_DIAS 66; BP_DIAS 73; PULSE 59; TEMP 36.5
[2017-02-26] MEDS: DIVALPROEX SODIUM 250 MG DELAY REL TAB PO SCH ×2 (08:30→20:37)
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
[2017-02-27] MEDS: hydrOXYzine HCL 25 MG TAB PO PRN (00:33)
[2017-02-27 06:43] VITALS: BP_SYST 103; BP_SYST 97; BP_DIAS 66; BP_DIAS 70; PULSE 53; PULSE 57; TEMP 36.3
[2017-02-27] MEDS: DIVALPROEX SODIUM 250 MG DELAY REL TAB PO SCH ×2 (08:38→22:29)
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
[2017-02-27] MEDS ORDERED: NURSING VERBAL MED ORDER ONE (22:15)
[2017-02-27] MEDS: IBUPROFEN 200 MG TAB PO PRN (22:30)
[2017-02-27] MEDS ORDERED: hydrOXYzine HCL 25 MG TAB PO PRN (22:30)
[2017-02-28] MEDS ORDERED: NURSING VERBAL MED ORDER ONE ×2 (00:45→17:45)
[2017-02-28] MEDS: ZALEPLON 5 MG CAP PO PRN ×3 (01:04→22:23)
[2017-02-28 06:55] VITALS: BP_SYST 95; BP_SYST 99; BP_DIAS 66; BP_DIAS 69; PULSE 64; PULSE 77; TEMP 36.5
[2017-02-28] MEDS: DIVALPROEX SODIUM 250 MG DELAY REL TAB PO SCH ×2 (08:04→17:35)
[2017-02-28] MEDS: IBUPROFEN 200 MG TAB PO PRN (09:46)
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
[2017-03-01] MEDS: ZALEPLON 5 MG CAP PO PRN (00:19)
[2017-03-01 06:59] VITALS: BP_SYST 107; BP_DIAS 73; BP_DIAS 75; PULSE 66; PULSE 72; TEMP 36.6
[2017-03-01] MEDS ORDERED: DIVALPROEX SODIUM 500 MG DELAY RELEASE TAB PO SCH (09:00)
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
[2017-03-01] MEDS ORDERED: DPKEC500 PO (10:19)
== END 2017-03-01 10:58 | disposition home or self-care (01) | DRG 918 ==
LOC: C.MHU 13:48
PROVIDERS: ADMIT Psychiatry & Neurology Psychiatry; ATTEND Psychiatry & Neurology Psychiatry
DX: T39.1X2A Poisoning by 4-Aminophenol derivatives, intentional self-harm, initial encounter (principal); F32.9 Major depressive disorder, single episode, unspecified; F12.10 Cannabis abuse, uncomplicated; F60.3 Borderline personality disorder; F50.9 Eating disorder, unspecified; Z87.891 Personal history of nicotine dependence

== ENCOUNTER 2017-05-06 12:10 | Emergency (ER) | payer BC ==
[~2017-05-06] VITALS: Ht 147.3 cm; Wt 53.1 kg
[~2017-05-06 12:10] MED LIST changes: +DPKEC500 PO; -ONDA4TAB10 SL; -RALT400T PO; -TRVHP PO
[2017-05-06 12:20] VITALS: Ht 147.3 cm; Wt 53.1 kg
[2017-05-06 12:59] LABS: MANUAL MICROSCOPIC REQUIRED? NO; REVIEW REQ? NO; URINE APPEARANCE CLOUDY (CLEAR); URINE BILIRUBIN NEG (NEG); URINE COLOR DK YELLOW; URINE EPITHELIAL CELL AUTO >30 /lpf (0-5); URINE NITRITE NEG (NEG); URINE PH 5.5 (4.5-7.5); URINE SPECIFIC GRAVITY 1.034 (1.000-1.030); UROBILINOGEN NEG (NEG); ZZUR CULT IF INDIC CLEAN CATCH YES
[2017-05-06 13:15] LABS: HEMATOCRIT 43.2 % (37-47); MEAN CELL VOLUME 92.1 fL (80-100); MEAN CORPUSCULAR HEMOGLOBIN 30.7 pg (25-34); MEAN CORPUSCULAR HGB CONC 33.3 g/dl (32-36); MEAN PLATELET VOLUME 11.3 fL (7.4-10.4); PLATELET COUNT 258 K/uL (130-400); RED BLOOD COUNT 4.69 M/uL (4.2-5.4); WHITE BLOOD COUNT 7.61 K/uL (4.8-10.8)
[2017-05-06 13:28] LABS: BENZODIAZEPINE, URINE NEG (NEG); COCAINE,URINE NEG (NEG); PHENCYCLIDINE, URINE NEG (NEG)
[2017-05-06 13:37] LABS: BUN/CREATININE RATIO 18.9 (10-20); CALCIUM 9.5 mg/dl (8.5-10.1); CREATININE 0.96 mg/dl (0.60-1.20); POTASSIUM 3.9 mmol/L (3.5-5.1)
[2017-05-06 13:48] LABS: ALB/GLOB RATIO 1.1 (0.9-2); THYROID STIMULATING HORMONE 1.01 uIu/ml (0.300-4.500)
--- NOTE | 2017-05-06 13:50 | EMERGENCY ROOM VISIT NOTE ---
History Report prepared by Santos: David Enriquez Under the Supervision of: Dr. Tawanda Bonilla M.D. First contact with patient: 12:25 Chief Complaint: MENTAL HEALTH EVALUATION Stated Complaint: MHMR History of Present Illness The patient is a 21 year old female who presents to the Emergency Room with complaints of intermittent depression beginning multiple years ago. The patient states that she has been seeing a therapist for a long time. She reports that her therapist states that one of her coping mechanisms with stress is going to a 'happy place' where nothing can go wrong, and she can't get hurt. The patient notes that she has been having trouble dealing with events in her life. She states that she is a transgender and came out before her last relationship. The patient reports that her last relationship ended badly and now, no one will take her seriously and are saying rude things. She notes that she feels horrible and has thought about hurting herself, but she does not have a plan. The patient states that she just wants to fit in and feel normal like everyone else. She reports that she called [facility] because she was there before. The patient notes they told her to go to the ED. She states that she does not want to go to [facility] again because she thinks it made her worse. The patient reports that the last time she was hospitalized was two months ago. She notes that she has not been able to sleep because she has regressed to bed wetting and is afraid to sleep. The patient states that her appetite has been on and off. She reports that the only health problem she has is asthma, and she is not on medication for it. Source of History: patient Onset: multiple years ago Position: other (global) Quality: other (depression) Timing: intermittent Note: Associated symptoms: lack of sleep, bed wetting, suicidal ideations, change in appetite Review of Systems See HPI for pertinent positives & negatives. A total of 10 systems reviewed and were otherwise negative. Past Medical & Surgical Medical Problems: (1) Asthma (2) Bipolar disorder (3) Borderline personality disorder (4) Cannabis abuse (5) Cervical pain (neck) (6) Eating disorder (7) Epigastric abdominal pain (8) Frontal lobe contusion (9) Head injury (10) Head injury (11) Mood disorder (12) Mood disorder (13) none (14) Past Psych Meds (15) Suicidal ideation (16) Suicidal ideation (17) Suicidal ideation (18) Suicide attempt by acetaminophen overdose (19) Syncope (20) Syncope and collapse (21) unspecified depression Family History No significant family history Social History Smoking Status: Former Smoker Alcohol Use: occasionally Drug Use: marijuana Marital Status: single Housing Status: lives with roommate, unknown Occupation Status: student Current/Historical Medications Scheduled Divalproex Sodium (Depakote), 1 TAB PO BID Scheduled PRN Hydroxyzine Pamoate (Vistaril), 1 CAP PO TID PRN for Anxiety/Agitation Allergies Coded Allergies: No Known Allergies (Unverified , 02/23/17) Physical Exam Vital Signs Date Time Temp Pulse Resp B/P (MAP) Pulse Ox O2 Delivery O2 Flow Rate FiO2 05/06/17 16:20 36.7 75 20 101/79 97 05/06/17 16:13 75 20 101/79 97 Room Air 05/06/17 12:20 36.7 65 16 110/73 95 Room Air Physical Exam GENERAL: Patient is tearful and upset, seems anxious. HEENT: No acute trauma, normocephalic atraumatic, mucous membranes moist, no nasal congestion, no scleral icterus. NECK: No stridor, no adenopathy, no meningismus, trachea is midline. LUNGS: Clear to auscultation bilaterally, no wheeze, no rhonchi, breath sounds equal. HEART: Without murmurs gallops or rubs, regular rate and rhythm. ABDOMEN: Soft, nontender, bowel sounds positive, no hernias, no peritonitis. EXTREMITIES: No cyanosis or edema, full range of motion of all the joints without pain or difficulty, no signs for acute trauma. NEUROLOGIC: Oriented x 3, no acute motor or sensory deficits, no focal weakness. SKIN: No rash, no jaundice, no diaphoresis. PSYCH: Cooperative, currently voluntary, admits to suicidal ideations without a plan, tearful when talking about her situation. Medical Decision & Procedures Laboratory Results 05/06/17 12:47 05/06/17 12:47 Test 05/06/17 12:30 05/06/17 12:47 Urine Color DK YELLOW Urine Appearance CLOUDY (CLEAR) Urine pH 5.5 (4.5-7.5) Urine Specific [place] 1.034 (1.000-1.030) Urine Protein NEG (NEG) Urine Glucose (UA) NEG (NEG) Urine Ketones TRACE (NEG) Urine Occult Blood NEG (NEG) Urine Nitrite NEG (NEG) Urine Bilirubin NEG (NEG) Urine Urobilinogen NEG (NEG) Urine Leukocyte Esterase SMALL (NEG) Urine WBC (Auto) 5-10 /hpf (0-5) Urine RBC (Auto) 5-10 /hpf (0-4) Urine Hyaline Casts (Auto) 5-10 /lpf (0-5) Urine Epithelial Cells (Auto) >30 /lpf (0-5) Urine Bacteria (Auto) 2+ (NEG) Urine Opiates Screen NEG (NEG) Urine Methadone, Qualitative NEG (NEG) Urine Barbiturates NEG (NEG) Urine Phencyclidine (PCP) Level NEG (NEG) Ur Amphetamine/Methamphetamine NEG (NEG) MDMA (Ecstasy) Screen NEG (NEG) Urine Benzodiazepines Screen NEG (NEG) Urine Cocaine Metabolite NEG (NEG) Urine Marijuana (THC) POS (NEG) Red Blood Count 4.69 M/uL (4.2-5.4) Mean Corpuscular Volume 92.1 fL (80-100) Mean Corpuscular Hemoglobin 30.7 pg (25-34) Mean Corpuscular Hemoglobin Concent 33.3 g/dl (32-36) RDW Standard Deviation 41.0 fL (36.4-46.3) RDW Coefficient of Variation 12.1 % (11.5-14.5) Mean Platelet Volume 11.3 fL (7.4-10.4) Anion Gap 8.0 mmol/L (3-11) Est Creatinine Clear Calc Drug Dose 65.9 ml/min Estimated GFR () 96.6 Estimated GFR (Non- 83.4 BUN/Creatinine Ratio 18.9 (10-20) Calcium Level 9.5 mg/dl (8.5-10.1) Total Bilirubin 0.3 mg/dl (0.2-1) Aspartate Amino Transf (AST/SGOT) 10 U/L (15-37) Alanine Aminotransferase (ALT/SGPT) 20 U/L (12-78) Alkaline Phosphatase 59 U/L (45-117) Total Protein 7.5 gm/dl (6.4-8.2) Albumin 3.9 gm/dl (3.4-5.0) Globulin 3.6 gm/dl (2.5-4.0) Albumin/Globulin Ratio 1.1 (0.9-2) Thyroid Stimulating Hormone (TSH) 1.010 uIu/ml (0.300-4.500) Human Chorionic Gonadotropin, Qual NEG (NEG) Salicylates Level < 1.7 mg/dl (2.8-20) Acetaminophen Level < 2 ug/ml (10-30) Ethyl Alcohol mg/dL < 3.0 mg/dl (0-3) Laboratory results reviewed by me. ED Course 1230: The patient was evaluated in room A05. A complete history and physical exam was performed. 1447: The patient was accepted at the [facility] but refused. She states she only came here because [facility] told her too. She just wants to get started on medications as an outpt. 1530: The psychiatry floor suggested that she be started on her previous medications again. 1603: Reevaluated the patient. Discussed results and discharge instructions: she verbalized understanding and agreement. The patient is ready for discharge. Medical Decision Differential diagnosis includes: suicidal ideations, drug and alcohol abuse, thyroid disorder, situational depression, electrolyte imbalance There is no leukocytosis or worrisome anemia. No significant electrolyte abnormality, kidney failure or hepatitis. The patient appears to be in a euthyroid state. testing is negative. Urinalysis shows contamination , no infection. Urine tox shows marijuana only. Alcohol, Tylenol and aspirin levels are undetectable. The patient presents with some suicidal ideation but no definite plan. She has a history of mental health admissions. The patient presents voluntary. The patient was felt medically clear for a psychiatric evaluation. The psychiatric keycase assembler has been involved. The patient has decided that she would like to go home with outpatient follow- up rather than come into any psychiatric facility. She did not meet criteria for an involuntary stay. The psychiatry services at this hospital recommended the patient restart her Depakote as before and they recommended Vistaril for anxiety. The patient was happy with this recommendation. Prescriptions were written. She is willing to be following as an outpatient and has agreed to return for worsening symptoms or any suicidal thoughts. Impression Primary Impression: Suicidal ideation Scribe Attestation The scribe's documentation has been prepared under my direction and personally reviewed by me in its entirety. I confirm that the note above accurately reflects all work, treatment, procedures, and medical decision making performed by me. Departure Information Dispostion Home / Self-Care Prescriptions Hydroxyzine Pamoate (VISTARIL) 25 Mg Cap 1 CAP PO TID Y for Anxiety/Agitation for 10 Days, #30 CAP Prov: Tawanda Bonilla M.D. 05/06/17 Divalproex Sodium (DEPAKOTE) 500 Mg Tab 1 TAB PO BID for 30 Days, #60 TAB 1 Refill Prov: Tawanda Bonilla M.D. 05/06/17 Referrals No Doctor, Assigned (PCP) Forms HOME CARE DOCUMENTATION FORM, IMPORTANT VISIT INFORMATION Patient Instructions My [facility] Additional Instructions restart depakote 500 mg daily for now vistaril 1 tab as needed for anxiety or panic follow up as outpt with therapist/psychiatrist return if worsening or feeling suicidal as we discussed
[2017-05-06 14:03] LABS: ACETAMINOPHEN < 2 ug/ml (10-30)
[2017-05-06 14:26] LABS: PREG INTERNAL NEGATIVE QC NEG CLEAR BACKGROUND; PREG INTERNAL POSITIVE QC POS CONTROL LINE
[2017-05-06] MEDS ORDERED: HYDR25CA PO (16:13)
[2017-05-06] MEDS ORDERED: DIVA500T59 PO (16:13)
[2017-05-06 16:20] VITALS: BP 101/79; PULSE 75; TEMP 36.7; O2SAT 97
== END 2017-05-06 16:21 | disposition home or self-care (01) ==
LOC: C.EDB 12:11 → C.EDA 16:21
DX: R45.851 Suicidal ideations (principal); J45.909 Unspecified asthma, uncomplicated; F31.9 Bipolar disorder, unspecified; F60.9 Personality disorder, unspecified; F12.90 Cannabis use, unspecified, uncomplicated; F39 Unspecified mood [affective] disorder; Z87.891 Personal history of nicotine dependence

== ENCOUNTER 2017-12-05 12:34 | Emergency (ER) | payer BC ==
[~2017-12-05] VITALS: Ht 147.3 cm; Wt 47.9 kg
[~2017-12-05 12:34] MED LIST changes: +DIVA500T59 PO; -DPKEC500 PO
[2017-12-05 12:35] VITALS: TEMP 37; Ht 147.3 cm; Wt 47.9 kg
[2017-12-05 14:19] LABS: BASO % 0.2 %; BASO ABS # 0.01 K/uL (0-0.2); EOS ABS # 0.06 K/uL (0-0.5); HEMATOCRIT 39.4 % (37-47); HEMOGLOBIN 13.8 g/dL (12.0-16.0); IG# 0.01 K/uL (0.00-0.02); LYMPH % 20.6 %; LYMPH ABS # 1.21 K/uL (1.2-3.4); MEAN CELL VOLUME 89.5 fL (80-100); MEAN CORPUSCULAR HEMOGLOBIN 31.4 pg (25-34); MEAN PLATELET VOLUME 12.5 fL (7.4-10.4); MONO % 6.6 %; MONO ABS # 0.39 K/uL (0.11-0.59); NEUT % 71.4 %; PLATELET COUNT 165 K/uL (130-400); RED CELL DISTRIBUTION WIDTH CV 12.1 % (11.5-14.5); RED CELL DISTRIBUTION WIDTH SD 39.2 fL (36.4-46.3); WHITE BLOOD COUNT 5.88 K/uL (4.8-10.8)
[2017-12-05 14:36] LABS: ALBUMIN 4.1 gm/dl (3.4-5.0); CALCIUM 9.5 mg/dl (8.5-10.1); CREATININE 0.89 mg/dl (0.60-1.20); POTASSIUM 3.4 mmol/L (3.5-5.1)
--- NOTE | 2017-12-05 14:54 | EMERGENCY ROOM VISIT NOTE ---
History Report prepared by Santos: Aneesh Lopes Under the Supervision of: Dr. Leo Handy M.D. First contact with patient: 13:31 Chief Complaint: MENTAL HEALTH EVALUATION Stated Complaint: 302 History of Present Illness The patient is a 22 year old white female with a past medical history of bipolar disorder who presents to the ED for a mental health evaluation due to a constant desire to end her life beginning a couple of months ago. The patient states that she feels as if "her purpose in life is done". She reports that her father was a police lieutenant patrol and was killed in 2008. The patient states that she has been receiving clues from her father recently. She reports that her clues have been telling her to end her life. She reports that she she can hear her dad through song lyrics. The patient states that she has been writing messages to her professor without knowing she did. She reports that in the messages she wrote "I am the light", which she believes is due to her dad. The patient states that she has been smoking marijuana so she can hear and see her dad. She reports that she has not been sleeping or eating in days. Per [employer] police, the patient was found singing by the edge of the parking garage loudly. She reported "it is time to go be with my dad" and asked the police to push her off of the edge. Per the patient's report, the patient has been hospitalized in the past for suicidal ideations. The patient was hospitalized at [facility] on February 23 due to a Tylenol overdose. She reports she has taken medications for her bipolar disorder, but report "they don't work". Positive suicidal ideation, tobacco use, marijuana use, smoking. Negative wanting to harm self, medication use, abdominal pain, nausea, seeing or hearing things that are not there. The patient reports her LNMP was two weeks ago. Source of History: patient Onset: a couple of months ago Position: other (global) Quality: other (global) Associated Symptoms: No nausea, No abdominal pain Review of Systems See HPI for pertinent positives and negatives. A total of ten systems were reviewed and were otherwise negative. Past Medical & Surgical Medical Problems: (1) Asthma (2) Bipolar disorder (3) Borderline personality disorder (4) Cannabis abuse (5) Cervical pain (neck) (6) Eating disorder (7) Epigastric abdominal pain (8) Frontal lobe contusion (9) Head injury (10) Head injury (11) Mood disorder (12) Mood disorder (13) none (14) Past Psych Meds (15) Suicidal ideation (16) Suicidal ideation (17) Suicidal ideation (18) Suicide attempt by acetaminophen overdose (19) Syncope (20) Syncope and collapse (21) unspecified depression Family History No significant family history Social History Smoking Status: Current Every Day Smoker Alcohol Use: occasionally Drug Use: marijuana Marital Status: single Housing Status: lives with roommate, unknown Occupation Status: student Current/Historical Medications Unable to Obtain Active Prescriptions or Reported Meds Allergies Coded Allergies: No Known Allergies (Unverified , 02/23/17) Physical Exam Vital Signs Date Time Temp Pulse Resp B/P (MAP) Pulse Ox O2 Delivery O2 Flow Rate FiO2 12/05/17 14:35 87 16 121/72 98 Room Air 12/05/17 12:35 37.0 90 20 113/91 98 Room Air Physical Exam GENERAL: Awake, alert, well-appearing, NAD, manic, tearful, flood of ideas HENT: Normocephalic, atraumatic. EYES: Normal conjunctiva. Sclera non-icteric. NECK: Supple. No nuchal rigidity. FROM. RESPIRATORY: CTAB, no rhonchi, wheezing, crackles CARDIAC: RRR, no MRG ABDOMEN: Soft, NTND, BS+ MSK: No chest wall TTP, no LE edema NEURO: GCS 15, CN 2-12 intact, moves all 4s on command SKIN: No rash or jaundice noted. Medical Decision & Procedures Laboratory Results 12/05/17 14:03 Red Blood Count 4.40, Mean Corpuscular Volume 89.5, Mean Corpuscular Hemoglobin 31.4, Mean Corpuscular Hemoglobin Concent 35.0, Mean Platelet Volume 12.5, Neutrophils (%) (Auto) 71.4, Lymphocytes (%) (Auto) 20.6, Monocytes (%) (Auto) 6.6, Eosinophils (%) (Auto) 1.0, Basophils (%) (Auto) 0.2, Neutrophils # (Auto) 4.20, Lymphocytes # (Auto) 1.21, Monocytes # (Auto) 0.39, Eosinophils # (Auto) 0.06, Basophils # (Auto) 0.01 12/05/17 14:03 Test 12/05/17 12:50 12/05/17 14:03 Urine Color YELLOW Urine Appearance CLOUDY (CLEAR) Urine pH 6.0 (4.5-7.5) Urine Specific [place] 1.028 (1.000-1.030) Urine Protein NEG (NEG) Urine Glucose (UA) NEG (NEG) Urine Ketones TRACE (NEG) Urine Occult Blood NEG (NEG) Urine Nitrite NEG (NEG) Urine Bilirubin NEG (NEG) Urine Urobilinogen NEG (NEG) Urine Leukocyte Esterase SMALL (NEG) Urine WBC (Auto) 5-10 /hpf (0-5) Urine RBC (Auto) 0-4 /hpf (0-4) Urine Hyaline Casts (Auto) 1-5 /lpf (0-5) Urine Epithelial Cells (Auto) >30 /lpf (0-5) Urine Bacteria (Auto) NEG (NEG) Urine Test NEG (NEG) Urine Opiates Screen NEG (NEG) Urine Methadone, Qualitative NEG (NEG) Urine Barbiturates NEG (NEG) Urine Phencyclidine (PCP) Level NEG (NEG) Ur Amphetamine/Methamphetamine NEG (NEG) MDMA (Ecstasy) Screen NEG (NEG) Urine Benzodiazepines Screen NEG (NEG) Urine Cocaine Metabolite NEG (NEG) Urine Marijuana (THC) POS (NEG) White Blood Count 5.88 K/uL (4.8-10.8) Red Blood Count 4.40 M/uL (4.2-5.4) Hemoglobin 13.8 g/dL (12.0-16.0) Hematocrit 39.4 % (37-47) Mean Corpuscular Volume 89.5 fL (80-100) Mean Corpuscular Hemoglobin 31.4 pg (25-34) Mean Corpuscular Hemoglobin Concent 35.0 g/dl (32-36) Platelet Count 165 K/uL (130-400) Mean Platelet Volume 12.5 fL (7.4-10.4) Neutrophils (%) (Auto) 71.4 % Lymphocytes (%) (Auto) 20.6 % Monocytes (%) (Auto) 6.6 % Eosinophils (%) (Auto) 1.0 % Basophils (%) (Auto) 0.2 % Neutrophils # (Auto) 4.20 K/uL (1.4-6.5) Lymphocytes # (Auto) 1.21 K/uL (1.2-3.4) Monocytes # (Auto) 0.39 K/uL (0.11-0.59) Eosinophils # (Auto) 0.06 K/uL (0-0.5) Basophils # (Auto) 0.01 K/uL (0-0.2) RDW Standard Deviation 39.2 fL (36.4-46.3) RDW Coefficient of Variation 12.1 % (11.5-14.5) Immature Granulocyte % (Auto) 0.2 % Immature Granulocyte # (Auto) 0.01 K/uL (0.00-0.02) Anion Gap 8.0 mmol/L (3-11) Est Creatinine Clear Calc Drug Dose 62.9 ml/min Estimated GFR () 105.1 Estimated GFR (Non- 90.7 BUN/Creatinine Ratio 12.9 (10-20) Calcium Level 9.5 mg/dl (8.5-10.1) Total Bilirubin 0.4 mg/dl (0.2-1) Aspartate Amino Transf (AST/SGOT) 12 U/L (15-37) Alanine Aminotransferase (ALT/SGPT) 19 U/L (12-78) Alkaline Phosphatase 49 U/L (45-117) Total Protein 7.0 gm/dl (6.4-8.2) Albumin 4.1 gm/dl (3.4-5.0) Globulin 2.9 gm/dl (2.5-4.0) Albumin/Globulin Ratio 1.4 (0.9-2) Thyroid Stimulating Hormone (TSH) 1.530 uIu/ml (0.300-4.500) Salicylates Level 3.2 mg/dl (2.8-20) Acetaminophen Level < 2 ug/ml (10-30) Ethyl Alcohol mg/dL < 3.0 mg/dl (0-3) Laboratory results reviewed by [place] ED Course 1433: The patient was evaluated in room A07. A complete history and physical exam was performed. 1950: I reevaluated the patient and discussed staying in the hospital. She understands the treatment plan and agrees. The patient will be further evaluated. 2028: The patient had been accepted to the [facility] and will be ready for transfer. Medical Decision Triage Nursing notes reviewed. The patient is a 22 year old white female with a past medical history of bipolar disorder who presents to the ED for a mental health evaluation due to a constant desire to end her life beginning a couple of months ago. The patient's presentation and history were concerning for etiologies such as mood disorder, infection, hypoglycemia, electrolyte abnormalities, cardiac sources, intracerebral event, toxicologic, neurologic, as well as others were entertained. Patient was seen and evaluated the bedside. There was concern that the patient did have a prior history of bipolar disorder and was seen on the edge of a parking deck and was emotional. The patient unfortunately suffered an emotional tragedy as her father was killed as a police lieutenant patrol in [facility]. Patient currently denies any SI or HI. Patient then perseverates on being able to see ears somewhat feel her father at times. Unsure as to whether or not the patient has any auditory or visual hallucinations. The patient did have blood work completed and was evaluated by her mental health specialist. Patient was not willing to come in as a voluntary so she was made at 302. The petitioning statements were made and signed. The patient was medically clear. The patient's UDS that should a positive result for THC which the patient did admit to using. The patient also did admit to the smoking cigarettes. The patient was given smoking cessation counseling. The patient is 302 was upheld and the patient was accepted to the [facility]. Patient was transferred to the [facility]. Medication Reconcilliation Current Medication List: was personally reviewed by me Blood Pressure Screening Patient's blood pressure: Normal blood pressure Impression Primary Impression: Rocio Additional Impressions: MDD (major depressive disorder) Encounter for smoking cessation counseling Scribe Attestation The scribe's documentation has been prepared under my direction and personally reviewed by me in its entirety. I confirm that the note above accurately reflects all work, treatment, procedures, and medical decision making performed by me. Departure Information Dispostion Mental Health Acute Care Prescriptions Unable to Obtain Active Prescriptions or Reported Meds Referrals No Doctor, Assigned (PCP) Patient Instructions My [facility] Problem Qualifiers Additional Impressions: MDD (major depressive disorder) Major depression recurrence: single episode Active/Remission status: currently active Major depression episode severity: severe Psychotic features : with psychotic features Qualified Codes: F32.3 - Major depressive disorder , single episode, severe with psychotic features
[2017-12-05] MEDS ORDERED: LORAZEPAM 1 MG TAB PO STA (20:17)
[2017-12-05 22:09] VITALS: BP 113/77; PULSE 65; O2SAT 94
== END 2017-12-05 22:10 ==
LOC: EDBD 12:34 → C.EDA 12:36
DX: F30.2 Manic episode, severe with psychotic symptoms (principal); F32.3 Major depressive disorder, single episode, severe with psychotic features; Z71.6 Tobacco abuse counseling; F31.9 Bipolar disorder, unspecified; F60.3 Borderline personality disorder; F17.200 Nicotine dependence, unspecified, uncomplicated; F12.10 Cannabis abuse, uncomplicated; J45.909 Unspecified asthma, uncomplicated

== ENCOUNTER 2018-01-05 17:50 | Emergency (ER) | payer BC ==
[2018-01-05 22:40] LABS: ALBUMIN 4.3 gm/dl (3.4-5.0); ALKALINE PHOSPHATASE 54 U/L (45-117); ALT/SGPT 17 U/L (12-78); AST/SGOT 12 U/L (15-37); BLOOD UREA NITROGEN 10 mg/dl (7-18); CARBON DIOXIDE 26 mmol/L (21-32); POTASSIUM 3.6 mmol/L (3.5-5.1); SODIUM 137 mmol/L (136-145); TOTAL PROTEIN 7.4 gm/dl (6.4-8.2)
[2018-01-05 22:43] LABS: BASO % 0.5 %; BASO ABS # 0.03 K/uL (0-0.2); EOS % 0.5 %; EOS ABS # 0.03 K/uL (0-0.5); HEMATOCRIT 40.5 % (37-47); HEMOGLOBIN 14.5 g/dL (12.0-16.0); IG# 0.01 K/uL (0.00-0.02); LYMPH % 26.5 %; LYMPH ABS # 1.45 K/uL (1.2-3.4); MEAN CELL VOLUME 89.4 fL (80-100); MEAN CORPUSCULAR HGB CONC 35.8 g/dl (32-36); MEAN PLATELET VOLUME 12.7 fL (7.4-10.4); MONO % 6.8 %; MONO ABS # 0.37 K/uL (0.11-0.59); NEUT % 65.5 %; NEUT ABS # 3.58 K/uL (1.4-6.5); PLATELET COUNT 187 K/uL (130-400); RED CELL DISTRIBUTION WIDTH CV 12.3 % (11.5-14.5); RED CELL DISTRIBUTION WIDTH SD 39.9 fL (36.4-46.3); WHITE BLOOD COUNT 5.47 K/uL (4.8-10.8)
[2018-01-05 22:45] LABS: CREATININE 0.94 mg/dl (0.60-1.20); GLUCOSE 85 mg/dl (70-99)
--- NOTE | 2018-01-05 23:25 | EMERGENCY ROOM VISIT NOTE ---
History Report prepared by Santos: Christal Aguirre Under the Supervision of: Dr. Timoteo Cardona M.D. First contact with patient: 23:04 Stated Complaint: ANXIETY History of Present Illness The patient is a 22 year old female who presents to the Emergency Room for a mental health evaluation secondary to persistent emotional outbursts that have worsened 2 days ago. According to police records, the patient was yelling she was going to burn down her apartment building 3 days, then 2 days ago she was yelling from her balcony that someone was trying to push her off but there was no one there, and today she was screaming about a gun misfiring. She reports that she has been feeling very depressed lately and that she was only screaming about a videogame. The patient states that her depression has been worsening because she keeps thinking about her father, who was killed in 2008, noting she wants to find out who killed him and ruined her childhood. She reports that she is very energetic and understands that she should be doing more exercise or sports to calm her down. The patient notes that she has not smoked marijuana in about a week. She notes a history of anxiety and ADHD. According to nursing staff, the patient took Zoloft earlier today. Source of History: patient, police Onset: 2 days ago Position: other (mental) Quality: other (emotional outbursts) Timing: other (persistent) Note: Associated symptoms: feeling depressed. Review of Systems See HPI for pertinent positives & negatives. A total of 10 systems reviewed and were otherwise negative. Past Medical & Surgical Medical Problems: (1) Asthma (2) Bipolar disorder (3) Borderline personality disorder (4) Cannabis abuse (5) Cervical pain (neck) (6) Eating disorder (7) Epigastric abdominal pain (8) Frontal lobe contusion (9) Head injury (10) Head injury (11) Mood disorder (12) Mood disorder (13) none (14) Past Psych Meds (15) Suicidal ideation (16) Suicidal ideation (17) Suicidal ideation (18) Suicide attempt by acetaminophen overdose (19) Syncope (20) Syncope and collapse (21) unspecified depression Family History No significant family history Social History Smoking Status: Current Every Day Smoker Alcohol Use: occasionally Drug Use: marijuana Marital Status: single Housing Status: lives with roommate, unknown Occupation Status: student Current/Historical Medications Unable to Obtain Active Prescriptions or Reported Meds Allergies Coded Allergies: No Known Allergies (Unverified , 02/23/17) Physical Exam Vital Signs Date Time Temp Pulse Resp B/P (MAP) Pulse Ox O2 Delivery O2 Flow Rate FiO2 01/05/18 23:55 72 18 117/64 98 Room Air Physical Exam GENERAL: Awake, alert, well-appearing, in no acute distress, but tearful on exam. HENT: Normocephalic, atraumatic. Oropharynx unremarkable. EYES: Normal conjunctiva. Sclera non-icteric. NECK: Supple. No nuchal rigidity. FROM. No JVD. RESPIRATORY: Clear to auscultation. CARDIAC: Regular rate, normal rhythm. Extremities warm and well perfused. Pulses equal. ABDOMEN: Soft, non-distended. No tenderness to palpation. No rebound or guarding. No masses. RECTAL: Deferred. MUSCULOSKELETAL: Chest examination reveals no tenderness. The back is symmetrical on inspection without obvious abnormality. There is no CVA tenderness to palpation. No joint edema. LOWER EXTREMITIES: Calves are equal size bilaterally and non-tender. No edema. No discoloration. NEURO: Normal sensorium. No sensory or motor deficits noted. SKIN: No rash or jaundice noted. Medical Decision & Procedures Laboratory Results 01/05/18 19:00 Red Blood Count 4.53, Mean Corpuscular Volume 89.4, Mean Corpuscular Hemoglobin 32.0, Mean Corpuscular Hemoglobin Concent 35.8, Mean Platelet Volume 12.7, Neutrophils (%) (Auto) 65.5, Lymphocytes (%) (Auto) 26.5, Monocytes (%) (Auto) 6.8, Eosinophils (%) (Auto) 0.5, Basophils (%) (Auto) 0.5, Neutrophils # (Auto) 3.58, Lymphocytes # (Auto) 1.45, Monocytes # (Auto) 0.37, Eosinophils # (Auto) 0.03, Basophils # (Auto) 0.03 01/05/18 19:00 Test 01/05/18 19:00 White Blood Count 5.47 K/uL (4.8-10.8) Red Blood Count 4.53 M/uL (4.2-5.4) Hemoglobin 14.5 g/dL (12.0-16.0) Hematocrit 40.5 % (37-47) Mean Corpuscular Volume 89.4 fL (80-100) Mean Corpuscular Hemoglobin 32.0 pg (25-34) Mean Corpuscular Hemoglobin Concent 35.8 g/dl (32-36) Platelet Count 187 K/uL (130-400) Mean Platelet Volume 12.7 fL (7.4-10.4) Neutrophils (%) (Auto) 65.5 % Lymphocytes (%) (Auto) 26.5 % Monocytes (%) (Auto) 6.8 % Eosinophils (%) (Auto) 0.5 % Basophils (%) (Auto) 0.5 % Neutrophils # (Auto) 3.58 K/uL (1.4-6.5) Lymphocytes # (Auto) 1.45 K/uL (1.2-3.4) Monocytes # (Auto) 0.37 K/uL (0.11-0.59) Eosinophils # (Auto) 0.03 K/uL (0-0.5) Basophils # (Auto) 0.03 K/uL (0-0.2) RDW Standard Deviation 39.9 fL (36.4-46.3) RDW Coefficient of Variation 12.3 % (11.5-14.5) Immature Granulocyte % (Auto) 0.2 % Immature Granulocyte # (Auto) 0.01 K/uL (0.00-0.02) Urine Color DK YELLOW Urine Appearance CLOUDY (CLEAR) Urine pH 8.0 (4.5-7.5) Urine Specific [place] 1.024 (1.000-1.030) Urine Protein TRACE (NEG) Urine Glucose (UA) NEG (NEG) Urine Ketones TRACE (NEG) Urine Occult Blood NEG (NEG) Urine Nitrite NEG (NEG) Urine Bilirubin NEG (NEG) Urine Urobilinogen NEG (NEG) Urine Leukocyte Esterase TRACE (NEG) Urine RBC 0-4 /hpf (0-4) Urine WBC 1-5 /hpf (0-5) Urine Epithelial Cells >30 /lpf (0-5) Urine Bacteria 1+ (NEG) Urine Test NEG (NEG) Anion Gap 6.0 mmol/L (3-11) Estimated GFR () 98.4 Estimated GFR (Non- 84.9 BUN/Creatinine Ratio 10.4 (10-20) Calcium Level 9.0 mg/dl (8.5-10.1) Total Bilirubin 0.7 mg/dl (0.2-1) Direct Bilirubin 0.1 mg/dl (0-0.2) Aspartate Amino Transf (AST/SGOT) 12 U/L (15-37) Alanine Aminotransferase (ALT/SGPT) 17 U/L (12-78) Alkaline Phosphatase 54 U/L (45-117) Total Protein 7.4 gm/dl (6.4-8.2) Albumin 4.3 gm/dl (3.4-5.0) Urine Opiates Screen NEG (NEG) Urine Methadone, Qualitative NEG (NEG) Urine Barbiturates NEG (NEG) Urine Phencyclidine (PCP) Level NEG (NEG) Ur Amphetamine/Methamphetamine NEG (NEG) MDMA (Ecstasy) Screen NEG (NEG) Urine Benzodiazepines Screen NEG (NEG) Urine Cocaine Metabolite NEG (NEG) Urine Marijuana (THC) POS (NEG) Ethyl Alcohol mg/dL < 3.0 mg/dl (0-3) Labs reviewed by ED physician. ED Course 1812: Past medical records reviewed. The patient was evaluated in room A8. A complete history and physical examination was performed. 1919: I reevaluated the patient and updated her on some test findings. 2236: I reevaluated the patient, she will be evaluated by Juliana soon. Medical Decision Differential diagnosis: Etiologies such as mood disorder, infection, hypoglycemia, electrolyte abnormalities, cardiac sources, intracerebral event, toxicologic, neurologic, as well as others were entertained. This is a 22-year-old female who presents the emergency department complaining of lito. The patient was recently at the [facility] and has not been taking any medication. She has had escalating behavior at her apartment over the past week. The patient is tearful on examination. She flips back and forth between anger and crying. She appears acutely manic to myself. The patient has very poor insight to her own condition. She was independently evaluated by psychiatric liaison and then independently evaluated by can help who all felt that the patient should be 302. The patient was accepted at the [facility]. Medication Reconcilliation Current Medication List: was personally reviewed by me Impression Primary Impression: Mood disorder Scribe Attestation The scribe's documentation has been prepared under my direction and personally reviewed by me in its entirety. I confirm that the note above accurately reflects all work, treatment, procedures, and medical decision making performed by me. Departure Information Dispostion Mental Health Acute Care Prescriptions Unable to Obtain Active Prescriptions or Reported Meds Referrals No Doctor, Assigned (PCP)
[2018-01-05 23:55] VITALS: BP 117/64; PULSE 72; O2SAT 98
== END 2018-01-06 01:56 ==
LOC: C.EDA 17:50
DX: F39 Unspecified mood [affective] disorder (principal); F41.9 Anxiety disorder, unspecified; F90.9 Attention-deficit hyperactivity disorder, unspecified type; F17.200 Nicotine dependence, unspecified, uncomplicated

== ENCOUNTER 2018-01-15 18:38 | Emergency (ER) | payer BC ==
[~2018-01-15] VITALS: Ht 147.3 cm; Wt 49.4 kg
[2018-01-15 18:40] VITALS: TEMP 37.5; Ht 147.3 cm; Wt 49.4 kg
[2018-01-15] MEDS ORDERED: ONDANSETRON INJ 2 MG/ML 2 ML VIAL IV STA (18:51)
[2018-01-15] MEDS ORDERED: SODIUM CHLORIDE 0.9% 1000ML 1,000 ML IV STA ×2 (18:51→22:06)
[2018-01-15 19:10] LABS: BASO % 0.1 %; BASO ABS # 0.01 K/uL (0-0.2); EOS % 0.4 %; EOS ABS # 0.03 K/uL (0-0.5); HEMATOCRIT 40.8 % (37-47); HEMOGLOBIN 14.3 g/dL (12.0-16.0); IG# 0.03 K/uL (0.00-0.02); LYMPH % 6.7 %; LYMPH ABS # 0.52 K/uL (1.2-3.4); MEAN CELL VOLUME 90.1 fL (80-100); MEAN CORPUSCULAR HEMOGLOBIN 31.6 pg (25-34); MEAN PLATELET VOLUME 11.3 fL (7.4-10.4); MONO % 6.2 %; MONO ABS # 0.48 K/uL (0.11-0.59); NEUT % 86.2 %; NEUT ABS # 6.68 K/uL (1.4-6.5); PLATELET COUNT 208 K/uL (130-400); RED CELL DISTRIBUTION WIDTH CV 12.6 % (11.5-14.5); RED CELL DISTRIBUTION WIDTH SD 41.1 fL (36.4-46.3); WHITE BLOOD COUNT 7.75 K/uL (4.8-10.8)
[2018-01-15] MEDS ORDERED: RISP2TAB22 PO (19:18)
[2018-01-15] MEDS ORDERED: LAMO25TA PO (19:18)
[2018-01-15] MEDS ORDERED: ACET-1311 PO (19:18)
[2018-01-15] MEDS ORDERED: ONDA4TAB46 PO (19:18)
[2018-01-15] MEDS ORDERED: DIPH1TAB87 PO (19:18)
[2018-01-15] MEDS ORDERED: HYDR-3126 PO (19:18)
[2018-01-15 19:33] LABS: ALBUMIN 4.3 gm/dl (3.4-5.0); ALT/SGPT 23 U/L (12-78); BLOOD UREA NITROGEN 14 mg/dl (7-18); CALCIUM 8.9 mg/dl (8.5-10.1); CARBON DIOXIDE 25 mmol/L (21-32); CREATININE 0.85 mg/dl (0.60-1.20); GLUCOSE 85 mg/dl (70-99); LIPASE 123 U/L (73-393); SODIUM 136 mmol/L (136-145)
[2018-01-15 19:36] LABS: ALKALINE PHOSPHATASE 51 U/L (45-117); AST/SGOT 16 U/L (15-37); TOTAL PROTEIN 7.4 gm/dl (6.4-8.2)
--- NOTE | 2018-01-15 19:47 | EMERGENCY ROOM VISIT NOTE ---
History Report prepared by Santos: Aneesh Lopes Under the Supervision of: Dr. Binh Arthur M.D. First contact with patient: 18:47 Stated Complaint: AB PAIN History of Present Illness The patient is a 22 year old female who presents to the Emergency Room with complaints of constant left lower quadrant abdominal pain beginning a couple of days ago. She rates her pain as a 6/10 in severity. Per the patient's report, the patient was recently placed in the [facility] due to suicidal ideations and Manic disorder. She reports that for the last couple of days she has not felt ill and told the staff that. The patient states they kept increasing her medication, including [place] and Benadryl, but states that she has not felt relieved of symptoms. She reports she has felt dizzy and has been shaking. The patient states she has also been experiencing left lower quadrant abdominal pain and back pain. She reports she has been nauseous and vomited today. She states her nausea is currently resolved. The patient states her menstrual period is due in a couple of days but denies having painful periods. She denies an appendectomy. Source of History: patient Onset: a couple of days ago Position: abdomen (LLQ) Symptom Intensity: 6/10 Timing: constant Associated Symptoms: + nausea, + vomiting, + back pain Note: Associated symptoms: dizziness and shaking Review of Systems See HPI for pertinent positives and negatives. A total of ten systems were reviewed and were otherwise negative. Past Medical & Surgical Medical Problems: (1) Asthma (2) Bipolar disorder (3) Borderline personality disorder (4) Cannabis abuse (5) Cervical pain (neck) (6) Eating disorder (7) Epigastric abdominal pain (8) Frontal lobe contusion (9) Head injury (10) Head injury (11) Mood disorder (12) Mood disorder (13) none (14) Past Psych Meds (15) Suicidal ideation (16) Suicidal ideation (17) Suicidal ideation (18) Suicide attempt by acetaminophen overdose (19) Syncope (20) Syncope and collapse (21) unspecified depression Family History No significant family history Social History Smoking Status: Current Every Day Smoker Alcohol Use: occasionally Drug Use: marijuana Marital Status: single Housing Status: lives with roommate, unknown Occupation Status: student Current/Historical Medications Scheduled Acetaminophen (Tylenol), 650 MG PO Q4 Diphenhydramine Hcl (Benadryl Allergy), 25 MG PO HS Famotidine (Pepcid), 20 MG PO BID Lamotrigine (Lamictal), 25 MG PO HS Ondasetron Odt (Zofran Odt), 4 MG SL Q6H Risperidone (Risperdal), 2 MG PO HS Scheduled PRN Hydroxyzine Hcl (Atarax), 50 MG PO Q6 PRN for Anxiety Ondansetron Hcl (Zofran), 4 MG PO Q6 PRN for Nausea Allergies Coded Allergies: No Known Allergies (Unverified , 01/15/18) Physical Exam Vital Signs Date Time Temp Pulse Resp B/P (MAP) Pulse Ox O2 Delivery O2 Flow Rate FiO2 01/16/18 01:33 98 18 107/74 99 01/16/18 00:18 89 18 100/68 99 Room Air 01/15/18 21:57 102 18 120/68 99 Room Air 01/15/18 20:37 112 01/15/18 19:50 108 23 98/67 99 Room Air 01/15/18 18:40 37.5 92 18 111/74 100 Room Air Physical Exam GENERAL: Awake, alert, uncomfortable appearing, in no distress HENT: Normocephalic, atraumatic. Dry mucous membranes. Oropharynx otherwise unremarkable. EYES: Normal conjunctiva. Sclera non-icteric. NECK: Supple. No nuchal rigidity. FROM. No JVD. RESPIRATORY: Clear to auscultation. CARDIAC: Regular rate, normal rhythm. Extremities warm and well perfused. Pulses equal. ABDOMEN: Soft, non-distended. Mild RLQ ttp. No rebound or guarding. No masses. RECTAL: Deferred. MUSCULOSKELETAL: Chest examination reveals no tenderness. The back is symmetrical on inspection without obvious abnormality. There is no CVA tenderness to palpation. No joint edema. LOWER EXTREMITIES: Calves are equal size bilaterally and non-tender. No edema. No discoloration. NEURO: Normal sensorium. No sensory or motor deficits noted. SKIN: No rash or jaundice noted. Medical Decision & Procedures ER Provider Diagnostic Interpretation: Radiology results as stated below per my review and radiologist interpretation: ABD/PELVIS IV CONTRAST ONLY CLINICAL HISTORY: 22 years-old Female presenting with RLQ pain. TECHNIQUE: Multidetector CT of the abdomen and pelvis was performed after the administration of intravenous contrast. IV contrast: 116 mL of Optiray 320. A dose lowering technique was used consistent with the principles of ALARA (as low as reasonably achievable). COMPARISON: None. CT DOSE (mGy.cm): The estimated cumulative dose is 263.35 mGy.cm. 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 Lung bases: Lungs and pleural spaces clear. Normal heart size. No pericardial or pleural effusion. Liver: Normal morphology. Perfusional variation noted along the fissure for the ligamentum teres. No liver lesion. Patent hepatic vasculature. Biliary: No intrahepatic or extrahepatic biliary ductal dilatation. Normal gallbladder. Pancreas: Normal. Spleen: Normal. Adrenal glands: Normal. Kidneys and ureters: Normal. No hydronephrosis. Bladder: Incompletely evaluated secondary to underdistention. Pelvic organs: Simple appearing 2.7 cm dominant follicle in the right ovary. Left ovary normal. Uterus normal. Bowel: Mild wall thickening of the hepatic flexure may be present. Wall thickening of the ascending colon noted. No significant pericolonic inflammatory change. The presumed appendix is normal within the limitations of lack of oral contrast. No bowel obstruction. Evaluation of the bowel limited by lack of oral contrast. Peritoneal cavity: Trace free fluid in the pelvis. No free intraperitoneal gas. Lymph nodes: No enlarged lymph nodes in the abdomen or pelvis. Vasculature: Aorta and IVC patent and normal in caliber. Abdominal wall: Normal. Musculoskeletal: Normal. IMPRESSION: 1. Mild wall thickening of the ascending colon to the level of the hepatic flexure. This suggests mild colitis, likely infectious. The presumed appendix is grossly normal allowing for the lack of oral contrast. No inflammatory changes in the right lower quadrant to suggest appendicitis. 2. Trace free fluid in the pelvis is likely physiologic. 3. Dominant right ovarian follicle. Electronically signed by: Trace Jalloh M.D. 01/15/2018 9:27 PM Dictated Date/Time: 01/15/2018 9:21 PM [facility] Preliminary Findings Only See Final Report For Complete Findings US PELVIC/ENDOVAG: Uterus measures 7.3 x 2.4 x 3.1 cm. Endometrium measures 3.4 mm. Nabothian cysts in the cervix. Right ovary measures 4.4 x 2.3 x 2.7 cm. Simple appearing dominant follicle or small cyst in the right ovary measuring 2.8 x 1.9 x 2.2 cm. Other smaller follicles noted in the right ovary. Normal color Doppler flow to the right ovary. Left ovary measures 3.6 x 1.7 x 2.0 cm. Normal appearance with multiple follicles and normal color Doppler flow. Trace fluid in the cul-de-sac may be physiologic. No adnexal mass. Laboratory Results 01/15/18 19:00 Red Blood Count 4.53, Mean Corpuscular Volume 90.1, Mean Corpuscular Hemoglobin 31.6, Mean Corpuscular Hemoglobin Concent 35.0, Mean Platelet Volume 11.3, Neutrophils (%) (Auto) 86.2, Lymphocytes (%) (Auto) 6.7, Monocytes (%) (Auto) 6.2, Eosinophils (%) (Auto) 0.4, Basophils (%) (Auto) 0.1, Neutrophils # (Auto) 6.68, Lymphocytes # (Auto) 0.52, Monocytes # (Auto) 0.48, Eosinophils # (Auto) 0.03, Basophils # (Auto) 0.01 01/15/18 19:00 Test 01/15/18 19:00 01/15/18 22:00 01/16/18 01:02 White Blood Count 7.75 K/uL (4.8-10.8) Red Blood Count 4.53 M/uL (4.2-5.4) Hemoglobin 14.3 g/dL (12.0-16.0) Hematocrit 40.8 % (37-47) Mean Corpuscular Volume 90.1 fL (80-100) Mean Corpuscular Hemoglobin 31.6 pg (25-34) Mean Corpuscular Hemoglobin Concent 35.0 g/dl (32-36) Platelet Count 208 K/uL (130-400) Mean Platelet Volume 11.3 fL (7.4-10.4) Neutrophils (%) (Auto) 86.2 % Lymphocytes (%) (Auto) 6.7 % Monocytes (%) (Auto) 6.2 % Eosinophils (%) (Auto) 0.4 % Basophils (%) (Auto) 0.1 % Neutrophils # (Auto) 6.68 K/uL (1.4-6.5) Lymphocytes # (Auto) 0.52 K/uL (1.2-3.4) Monocytes # (Auto) 0.48 K/uL (0.11-0.59) Eosinophils # (Auto) 0.03 K/uL (0-0.5) Basophils # (Auto) 0.01 K/uL (0-0.2) RDW Standard Deviation 41.1 fL (36.4-46.3) RDW Coefficient of Variation 12.6 % (11.5-14.5) Immature Granulocyte % (Auto) 0.4 % Immature Granulocyte # (Auto) 0.03 K/uL (0.00-0.02) Anion Gap 8.0 mmol/L (3-11) Estimated GFR () 111.2 Estimated GFR (Non- 95.9 BUN/Creatinine Ratio 17.0 (10-20) Calcium Level 8.9 mg/dl (8.5-10.1) Total Bilirubin 0.7 mg/dl (0.2-1) Direct Bilirubin 0.2 mg/dl (0-0.2) Aspartate Amino Transf (AST/SGOT) 16 U/L (15-37) Alanine Aminotransferase (ALT/SGPT) 23 U/L (12-78) Alkaline Phosphatase 51 U/L (45-117) Total Protein 7.4 gm/dl (6.4-8.2) Albumin 4.3 gm/dl (3.4-5.0) Lipase 123 U/L (73-393) [place] Level < 0.2 mMOL/L (0.6-1.2) Urine Color YELLOW Urine Appearance CLEAR (CLEAR) Urine pH 6.5 (4.5-7.5) Urine Specific [place] > 1.045 (1.000-1.030) Urine Protein NEG (NEG) Urine Glucose (UA) NEG (NEG) Urine Ketones TRACE (NEG) Urine Occult Blood NEG (NEG) Urine Nitrite NEG (NEG) Urine Bilirubin NEG (NEG) Urine Urobilinogen NEG (NEG) Urine Leukocyte Esterase NEG (NEG) Urine Test NEG (NEG) Date/Time Source Procedure Growth Status 01/16/18 01:07 Vaginal Drainage Trichomonas Preparation - Final Complete Laboratory results reviewed by me Medications Administered Medications (Trade) Dose Ordered Sig/Pietro Route Start Time Stop Time Status Last Admin Dose Admin Sodium Chloride 1,000 ml @ 999 mls/hr Q1H1M STAT IV 01/15/18 18:51 01/15/18 19:51 DC 01/15/18 19:00 999 MLS/HR Ondansetron HCl (Zofran Inj) 4 mg NOW STAT IV 01/15/18 18:51 01/15/18 18:53 DC 01/15/18 18:58 4 MG Sodium Chloride 2,000 ml @ 999 mls/hr Q2H1M STAT IV 01/15/18 20:03 01/15/18 22:03 DC 01/15/18 20:35 999 MLS/HR Acetaminophen 100 ml @ 400 mls/hr NOW STAT IV 01/15/18 20:03 01/15/18 20:17 DC 01/15/18 20:34 400 MLS/HR Sodium Chloride 1,000 ml @ 999 mls/hr Q1H1M STAT IV 01/15/18 22:06 01/15/18 23:06 DC 01/15/18 22:06 999 MLS/HR Potassium Chloride (Klor-Con M10) 40 meq NOW STAT PO 01/15/18 22:06 01/15/18 22:07 DC 01/16/18 00:17 40 MEQ Ondansetron HCl (ZOFRAN ODT 4MG Home Pack) 1 homepack UD ONCE PO 01/16/18 01:15 01/16/18 01:16 DC 01/16/18 01:17 1 HOMEPACK Famotidine (Pepcid Tab) 20 mg NOW ONCE PO 01/16/18 01:15 01/16/18 01:16 DC 01/16/18 01:22 20 MG Ondansetron HCl (Zofran Inj) 4 mg NOW STAT IV 01/16/18 01:14 01/16/18 01:16 DC 01/16/18 01:22 4 MG ED Course 2001: The patient was evaluated in room C01B. A complete history and physical exam was performed. Medical Decision I reviewed the patient's past medical history, medications, and the nursing notes as described above. The patient's presentation and history were concerning for etiologies such as appendicitis, diverticulitis, PUD, biliary pathology, UTI, pancreatitis, obstruction, mesenteric ischemia, aortic pathology, infections, inflammatory bowel disease, renal colic, as well as others were entertained. The patient is a 22-year-old woman who presents to emergency department from the [facility] where she has been admitted for depression and suicidal ideation, with right-sided abdominal pain with nausea and vomiting per hpi. On arrival the patient is fatigued and uncomfortable but no acute distress, afebrile stable vital signs. On exam the patient has mild right-sided abdominal tenderness without any peritoneal signs. WBC within normal limits. K 3.0 and chemistry otherwise unremarkable. UA negative for infection. CT abdomen pelvis with question mild early colitis. The patient's right lower quadrant tenderness a pelvic ultrasound was performed to rule out additional etiology and was unremarkable. Pelvic exam with no discharge or lesions. No CMT. Symptoms most likely related to a gastroenteritis/colitis. Patient feeling significantly improved after IV fluid hydration and antiemetics. Plan for supportive care. Findings and plan for follow-up reviewed with patient. Patient agreeable and d/c'd per discharge instructions. Medication Reconcilliation Current Medication List: was personally reviewed by me Blood Pressure Screening Patient's blood pressure: Normal blood pressure Impression Primary Impression: Colitis, acute Scribe Attestation The scribe's documentation has been prepared under my direction and personally reviewed by me in its entirety. I confirm that the note above accurately reflects all work, treatment, procedures, and medical decision making performed by me. Departure Information Dispostion Home / Self-Care Prescriptions Famotidine (PEPCID) 20 Mg Tab 20 MG PO BID for 14 Days, #28 TAB Prov: Binh Arthur M.D. 01/16/18 Ondasetron Odt (ZOFRAN ODT) 4 Mg Tab 4 MG SL Q6H for Nausea, #10 TAB Prov: Binh Arthur M.D. 01/15/18 Referrals [facility] (PCP) Patient Instructions ED Gastroenteritis Viral, My [facility] Additional Instructions Please follow up with your provider in the next 1-3 days for re-evaluation. Your symptoms are likely due to a gastroenteritis/colitis. Otherwise, your exam, lab results, CT scan, and ultrasound did not show signs of an emergent condition at this time. Zofran as needed for nausea. Pepcid for acid reduction. Drink plenty of fluids to ensure hydration. Return to the emergency department for worsening symptoms as described in the accompanying instructions.
[2018-01-15] MEDS ORDERED: ACETAMINOPHEN IV 100 ML IV STA (20:03)
[2018-01-15] MEDS ORDERED: SODIUM CHLORIDE 0.9% 1000ML 2,000 ML IV STA (20:03)
--- NOTE | 2018-01-15 21:29 | DIAGNOSTIC IMAGING REPORT ---
ABD/PELVIS IV CONTRAST ONLY CLINICAL HISTORY: 22 years-old Female presenting with RLQ pain. TECHNIQUE: Multidetector CT of the abdomen and pelvis was performed after the administration of intravenous contrast. IV contrast: 116 mL of Optiray 320. A dose lowering technique was used consistent with the principles of ALARA (as low as reasonably achievable). COMPARISON: None. CT DOSE (mGy.cm): The estimated cumulative dose is 263.35 mGy.cm. 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 Lung bases: Lungs and pleural spaces clear. Normal heart size. No pericardial or pleural effusion. Liver: Normal morphology. Perfusional variation noted along the fissure for the ligamentum teres. No liver lesion. Patent hepatic vasculature. Biliary: No intrahepatic or extrahepatic biliary ductal dilatation. Normal gallbladder. Pancreas: Normal. Spleen: Normal. Adrenal glands: Normal. Kidneys and ureters: Normal. No hydronephrosis. Bladder: Incompletely evaluated secondary to underdistention. Pelvic organs: Simple appearing 2.7 cm dominant follicle in the right ovary. Left ovary normal. Uterus normal. Bowel: Mild wall thickening of the hepatic flexure may be present. Wall thickening of the ascending colon noted. No significant pericolonic inflammatory change. The presumed appendix is normal within the limitations of lack of oral contrast. No bowel obstruction. Evaluation of the bowel limited by lack of oral contrast. Peritoneal cavity: Trace free fluid in the pelvis. No free intraperitoneal gas. Lymph nodes: No enlarged lymph nodes in the abdomen or pelvis. Vasculature: Aorta and IVC patent and normal in caliber. Abdominal wall: Normal. Musculoskeletal: Normal. IMPRESSION: 1. Mild wall thickening of the ascending colon to the level of the hepatic flexure. This suggests mild colitis, likely infectious. The presumed appendix is grossly normal allowing for the lack of oral contrast. No inflammatory changes in the right lower quadrant to suggest appendicitis. 2. Trace free fluid in the pelvis is likely physiologic. 3. Dominant right ovarian follicle. Electronically signed by: Trace Jalloh M.D. 01/15/2018 9:27 PM Dictated Date/Time: 01/15/2018 9:21 PM
[2018-01-15] MEDS ORDERED: OPTIRAY 320 IV PRN (21:30)
[2018-01-15] MEDS ORDERED: POTASSIUM CHLORIDE 10 MEQ TABCR PO STA (22:06)
[2018-01-15] MEDS ORDERED: ONDA4TAB10 SL (23:53)
[2018-01-16] MEDS ORDERED: POTASSIUM CHLORIDE 10 MEQ TABCR ONE (00:15)
[2018-01-16] MEDS ORDERED: ONDANSETRON INJ 2 MG/ML 2 ML VIAL IV STA (01:14)
[2018-01-16] MEDS ORDERED: FAMOTIDINE 20 MG TAB PO ONE (01:15)
[2018-01-16] MEDS ORDERED: ONDANSETRON HOME PACK 4MG OD TAB PO ONE (01:15)
[2018-01-16] MEDS ORDERED: FAMO20TA9 PO (01:19)
[2018-01-16 01:33] VITALS: BP 107/74; PULSE 98; O2SAT 99
--- NOTE | 2018-01-16 06:29 | DIAGNOSTIC IMAGING REPORT ---
EXAMINATION: PELVIC ULTRASOUND (transabdominal and endovaginal scanning) CLINICAL HISTORY: Right lower quadrant abdominal pain COMPARISON STUDY: CT scan dated 01/15/2018 FINDINGS: The uterus measured 73 x 24 x 31 mm. Nabothian gland cysts were visualized.. The endometrial stripe measured 3 mm. The right ovary measured 44 x 23 x 27 mm there is a 28 mm dominant follicle.. The left ovary measured 36 x 17 x 20 mm. There is no ultrasonographic evidence of ovarian torsion. It should be noted that ovarian torsion can be present with normal Doppler ultrasonographic findings. There is minimal free fluid, likely physiologic. IMPRESSION: 28 mm right ovarian dominant follicle. Normal pelvic ultrasound. Electronically signed by: Maycol Campbell M.D. 01/16/2018 6:28 AM Dictated Date/Time: 01/16/2018 6:26 AM
== END 2018-01-16 01:34 | disposition home or self-care (01) ==
LOC: EDBD 18:38 → C.EDC 18:40
DX: K52.9 Noninfective gastroenteritis and colitis, unspecified (principal); J45.909 Unspecified asthma, uncomplicated; F17.200 Nicotine dependence, unspecified, uncomplicated; Z91.5 Personal history of self-harm; F31.9 Bipolar disorder, unspecified; Z79.899 Other long term (current) drug therapy